=== PATIENT | female | born 1960 | race Caucasian/White ===

== ENCOUNTER → 2018-02-15 | Outpatient (CLI) | payer OTHER ==
--- NOTE | 2018-02-15 08:58 | DIAGNOSTIC IMAGING REPORT ---
(CHEST) THORAX WITHOUT CT DOSE: 308.48 mGy.cm HISTORY: R91.1 Lesion of lungR91.8 Multiple pulmonary nodules TECHNIQUE: Multiaxial CT images of the chest were performed without contrast. A dose lowering technique was utilized adhering to the principles of ALARA. COMPARISON: Outside hospital chest CT 04/25/2016. FINDINGS: The central airways are patent. No pleural effusions. No pneumothorax. There are small areas of tree-in-bud nodular opacities seen within the periphery of the lingula and the periphery of the right upper lobe. These are similar to the prior study. A few of the distal right upper lobe bronchi are opacified. There are few small nodule seen within the periphery of the anterior 7 of the right upper lobe. Dominant nodule measures 4 mm on image 145. This is new from the prior study. The dominant nodule seen within the periphery the right upper lobe on the prior study has resolved. No suspicious lytic or blastic osseous lesions. No mediastinal or hilar lymphadenopathy. The heart is normal in size. No pericardial effusions. Normal adrenal glands. Normal caliber thoracic aorta. Bilateral breast implants are again noted. No significant change in the multiple splenic hypodense lesions seen back to the 2011 examination. Dominant lesion measures 1.9 cm. There are 2 hypodense lesions within the liver. These are incompletely characterized on this noncontrast study but favor cysts. IMPRESSION: 1. Small areas of tree-in-bud nodular opacities seen within the lingula and right upper lobe which are similar to the prior study. This favors a chronic bronchiolitis. 2. There are few small nodules seen within the periphery the right upper lobe adjacent to the tree-in-bud nodules, some of which are new. This also favors inflammatory/infectious change. These nodules demonstrate a waxing and waning appearance compared to the prior study. A new dominant nodule measures 4 mm. Please refer to the chart below for recommended follow-up. 3. Stable splenic hypodense lesions. Please refer to below summary of Fleischner criteria recommendations for follow-up of incidental CT nodules (Eliana Parham, Guidelines for management of small pulmonary nodules detected on CT scans: A statement from the Fleischner Society, Radiology [phone]: [phone].) SOLID NODULES Solitary nodule size: <6 mm * Low risk patients: no follow-up needed * high risk patients: optional CT at 12 months Solitary nodule size: 6-8 mm * Low risk patients: follow-up at 6-12 months, then consider further follow-up at 18-24 months * high risk patients: initial follow-up CT at 6-12 months and then at 18-24 months if no change Solitary nodule size: >8 mm * either low or high risk patients - consider follow-up CT at 3 months, and/or CT-PET, and/or biopsy Multiple nodules size: <6 mm * Low risk patients: no routine follow-up * high risk patients: optional CT at 12 months Multiple nodules size: 6-8 mm * Low risk patients: follow-up at 3-6 months, then consider further follow-up at 18-24 months * high risk patients: follow-up at 3-6 months, then at 18-24 months if no change Multiple nodules size: >8 mm * Low risk patients: follow-up at 3-6 months, then consider further follow-up at 18-24 months * high risk patients: follow-up at 3-6 months, then at 18-24 months if no change Note: newly detected indeterminate nodule in persons 35 years of age or older. * Low risk patients: minimal or absent history of smoking and/or other known risk factors * high risk patients: history of smoking or of other known risk factors (e.g. first degree relative with lung cancer, or exposure to asbestos, radon, uranium) * if a nodule up to 8 mm is partly solid or is ground glass further follow-up is required after 24 months to exclude possible slow growing adenocarcinoma ([facility]) SUBSOLID NODULES Solitary pure ground-glass nodule * nodule size <6 mm - no CT follow-up required * nodule size >=6 mm - follow-up CT at 6-12 months, then every 2 years until 5 years Solitary part-solid nodule * nodule size <6 mm - no CT follow-up required * nodule size >=6 mm - follow-up CT at 3-6 months. If unchanged, and solid component remains <6 mm, then annual follow-up for 5 years Multiple subsolid nodules * nodule size <6 mm - follow-up CT at 3-6 months, consider further follow-up at 2 and 4 years if stable * nodule size >=6 mm - follow-up CT at 3-6 months, subsequent management based on the most suspicious nodule(s) Electronically signed by: Dustin Anaya M.D. 02/15/2018 8:56 AM Dictated Date/Time: 02/15/2018 8:46 AM
== END | disposition home or self-care (01) ==
LOC: C.CTS 08:32
PROVIDERS: ATTEND Physician Assistant
DX: R91.8 Other nonspecific abnormal finding of lung field (principal); R91.1 Solitary pulmonary nodule